=== PATIENT | female | born 1970 | race Caucasian/White ===

== ENCOUNTER → 2017-06-20 | Outpatient (CLI) | payer BC ==
--- NOTE | 2017-06-20 12:18 | WWHP ---
[facility] - HISTORY AND PHYSICAL DATE OF SERVICE: 06/20/2017 CHIEF COMPLAINT: The patient is here for her routine gynecologic exam and mammogram. HPI: This is a 46-year-old G4, P4, with an LMP of 06/14/2017. The patient is status post tubal ligation. The patient states her periods have gotten heavier and are lasting about 5 days. Typically, the second day of her menses is heavy with clots and she has to change her protection about every 1-1/2 hours. She is also experiencing infrequent pelvic pains over the past 1 year. She states when she goes from a sitting to a standing position, she occasionally will notice a sharp pain in the lower abdomen and pelvis. She states she has to get up slowly, but will typically go away within seconds. She states this has occurred about a dozen times over the last year. She states it is not on one particular side and it is very unpredictable when she will notice this. PAST MEDICAL HISTORY: Past medical history is unremarkable. MEDICATIONS: None. ALLERGIES: No known drug allergies. PAST SURGICAL HISTORY: Tonsillectomy in 1989, tubal ligation in 2002. 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 She has no history of STDs. SOCIAL HISTORY: She denies tobacco, alcohol, and drug use. 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 FAMILY HISTORY: Father had an [place] and also has type 2 diabetes. REVIEW OF SYSTEMS: Weight has been stable. She denies respiratory, cardiac or GI problems. PHYSICAL EXAM: Blood pressure 128/76, height 5 feet 4 inches, weight 164 pounds, BMI 28, temperature 97.9, pulse 64. This is a well-developed, well-nourished, white female, who is alert and oriented x3, in no acute distress. HEENT is within normal limits. NECK: Supple without mass or thyromegaly. CHEST AND LUNGS: Clear to auscultation. HEART: Regular rate and rhythm. Breasts are without mass or discharge. Axillary exam is negative for adenopathy. BACK: Negative for CVA tenderness. ABDOMEN: Soft, nontender, without palpable masses. PELVIC EXAM: Normal external genitalia. Cervix and vagina appear normal. There is no unusual discharge. There is no cervical motion tenderness. The uterus is mid position, nongravid size and nontender. There are no palpable adnexal masses or tenderness. Rectal exam is negative for mass or tenderness and is negative for occult blood. EXTREMITIES: Nontender. IMPRESSION: 1. A 46-year-old female who is status post tubal ligation with normal gynecologic exam. 2. Mild hypermenorrhea with regular menses with no significant physical findings at this time. 3. Intermittent infrequent pelvic pains, which seem to be associated with changes in her position with no significant physical findings at this time. PLAN: 1. Pap smear was performed. 2. Self breast examination was discussed. 3. Screening mammogram will be done today. 4. The patient will keep a menstrual calendar and we will have a trial with meclofenamate sodium 100 mg t.i.d. p.r.n. for heavy menstrual flow up to 6 days per cycle. If she is not noticing significant improvement within the first 3 months she was instructed to call and we will consider other options such as endometrial ablation. 5. Pelvic ultrasound will be scheduled. 6. She will return in 1 year. MMODL / IJN: [id number] /
--- NOTE | 2017-06-21 10:05 | MM ---
Reason for exam: screening (asymptomatic). Last mammogram was performed 3 years and 11 months ago. Physical Findings: A clinical breast exam by your physician is recommended on an annual basis and results should be correlated with mammographic findings. MG Screening Mammo w CAD Bilateral CC and MLO view(s) were taken. Prior study comparison: July 28, 2013, bilateral digital screening mammo w/CAD. The breast tissue is extremely dense which could obscure a lesion on mammography. There is no discrete abnormality. ASSESSMENT: Negative, BI-RAD 1 RECOMMENDATION: Routine screening mammogram of both breasts in 1 year.
== END | disposition home or self-care (01) ==
LOC: WWCWWP 10:07
PROVIDERS: ATTEND Obstetrics & Gynecology
DX: Z12.31 Encounter for screening mammogram for malignant neoplasm of breast (principal)
CPT/HCPCS: 77067

== ENCOUNTER → 2017-06-29 | Outpatient (CLI) | payer BC ==
--- NOTE | 2017-06-29 16:50 | US ---
EXAMINATION TYPE: US pelvic complete DATE OF EXAM: 06/29/2017 COMPARISON: NONE CLINICAL HISTORY: R10.2 PELVIC PAIN. bilateral pelvic pain when moving from sitting to standing TECHNIQUE: TA. Transabdominal sonographic images of the pelvis were acquired. Date of LMP: 06/17/2017 EXAM MEASUREMENTS: Uterus: 10.6 x 6.5 x 5.2 cm Endometrial Stripe: 1.6 cm Right Ovary: 2.5 x 1.5 x 2.5 cm Left Ovary: 3.1 x 3.8 x 1.5 cm 1. Uterus: Anteverted wnl 2. Endometrium: thickened 3. Right Ovary: wnl 4. Left Ovary: 1.7cm follicle seen 5. Bilateral Adnexa: wnl 6. Posterior cul-de-sac: wnl IMPRESSION: There is mild heterogeneous endometrial thickening of uncertain significance. No endometr ial mass seen. Simple 1.7 cm left ovarian cyst.
== END | disposition home or self-care (01) ==
LOC: RADUSWWP 16:09
PROVIDERS: ATTEND Obstetrics & Gynecology
DX: N83.202 Unspecified ovarian cyst, left side (principal); R93.8 Abnormal findings on diagnostic imaging of other specified body structures
CPT/HCPCS: 76856

== ENCOUNTER → 2019-11-24 | Outpatient (CLI) | payer BC ==
--- NOTE | 2019-11-24 14:42 | US ---
EXAMINATION TYPE: US pelvis complete transvag DATE OF EXAM: 11/24/2019 COMPARISON: Pelvic ultrasound 2018 CLINICAL HISTORY: N95.0 Menorrhagia. TECHNIQUE: . Transabdominal sonographic images of the pelvis were acquired. Transvaginal sonographi c images were medically necessary to better assess the following anatomy: Date of LMP: 11-11-2019 EXAM MEASUREMENTS: Uterus: 10.9 x 6.4 x 7.1cm Endometrial Stripe: 0.6-2.0cm Right Ovary: 1.8 x 1.3 x 1.1cm Left Ovary: 3.4 x 1.9 x 1.9cm 1. Uterus: diffusely heterogeneous, prominent vascularity 2. Endometrium: ill defined borders, difficult to ascertain where endometrium ends and myometrium be gins, possibly thickened with scattered fluid pockets largest at 1 cm 3. Right Ovary: wnl 4. Left Ovary: cystic structure measuring 2.1 x 1.8 x 1.9cm 5. Bilateral Adnexa: wnl 6. Posterior cul-de-sac: wnl Persistent heterogeneous anteverted uterus. Endometrial stripe poorly defined. Central area shows are as of heterogeneous hyperechoic presence and tiny cysts. Few small nabothian cysts in the cervix on t ransvaginal investigation. No free fluid in pelvis. Both ovaries seen without concerning adnexal mass. IMPRESSION: Possible underlying adenomyosis. Consider pelvic MRI to better evaluate and characteriz e.
== END | disposition home or self-care (01) ==
LOC: RADUSWWP 13:32
PROVIDERS: ATTEND Obstetrics & Gynecology
DX: N95.0 Postmenopausal bleeding (principal)
CPT/HCPCS: 76830; 76856

== ENCOUNTER → 2020-02-03 | Day surgery (SDC) | payer BC ==
[2020-02-02 08:26] VITALS: BMI 31.7
--- NOTE | 2020-02-02 14:07 | HP ---
HISTORY AND PHYSICAL DATE OF SURGERY: 02/03/2020 HISTORY OF PRESENT ILLNESS: The patient is a 49-year-old 4, para 4-0-0-4, who presented to the office for evaluation of menorrhagia. She complains of a fairly longstanding history of increasingly heavy bleeding which initially responded to meclofenamate sodium, but now has become no longer helpful. She has been bleeding through double protection and is often unable to leave her house for periods of time secondary to fear of breakthrough bleeding. She does have a tubal ligation in place. Her cycles remain otherwise regular. She is aware of other alternatives, but has requested treatment with diagnostic hysteroscopy and NovaSure endometrial ablation. PAST MEDICAL HISTORY: Significant for history of kidney stones. PAST SURGICAL HISTORY: Significant for tonsillectomy and tubal ligation with no apparent anesthetic concerns. OBSTETRICAL HISTORY: 4, para 4-0-0-4 with 4 term vaginal deliveries without complications. Method of contraception is tubal ligation. GYNECOLOGIC HISTORY: Unremarkable with no history of any infections to include STDs. FAMILY HISTORY: Noncontributory. SOCIAL HISTORY: The patient is and works in the [employer]. She is a nonsmoker and denies any significant alcohol or any other social concerns. CURRENT MEDICATIONS: Include only meclofenamate sodium as needed and a multivitamin daily. ALLERGIES: No known drug allergies. REVIEW OF SYSTEMS: Confined to history of present illness. PHYSICAL EXAMINATION: Vital signs are stable and the patient is afebrile. In general, this is a well- developed, well-nourished white female in no acute distress. Her heart has a regular rhythm and rate without murmur. Her lungs are clear to auscultation bilaterally in all velasco. Her abdomen is nondistended, has normoactive bowel sounds, soft, nontender, without any palpable masses, hepatosplenomegaly, or hernias. Her extremities are without any cyanosis, clubbing, or edema and are nontender to palpation bilaterally. Pelvic examination demonstrates normal external genitalia and the BUS with normal vaginal mucosa and cervix. There is no cervical motion tenderness. Uterus is 6 weeks in size, anteverted, mobile, nontender, and normal in shape. Endometrial biopsy was done in 1 pass and had benign findings. ASSESSMENT AND PLAN: Menorrhagia: We discussed multiple options for treatment and the patient requests desire to proceed with diagnostic hysteroscopy with NovaSure endometrial ablation. The risks and complications have been thoroughly discussed including risk for bleeding, bleeding requiring transfusion, infection, and injury to local structures to specifically include uterine perforation, Asherman syndrome, and possible hematometra. She has understood all these concerns and agreed to proceed. We are scheduled for the procedures as outlined above on the morning of Monday, February 03, 2020. MMODL / IJN: [id number] /
[~2020-02-03] MED LIST: Acetaminophen-Codeine 300-30mg TAB PO PRN; DEXAMETHASONE SOD PHOSPHATE 10 MG/ML 1 ML VIAL IV ONE; HYDROmorphone 0.5 MG/0.5 ML SYRINGE IVP PRN; IBUPROFEN 600 MG TAB PO PRN; KETOROLAC 15 MG/ML 1 ML VIAL IVP PRN; KETOROLAC 15 MG/ML 1 ML VIAL ONE; LACTATED RINGERS 1,000 ML IV SCH; LIDOCAINE 1% (10MG/ML) FOR IV START INTRADERMA PRN; LIDOCAINE 1% INJ 10MG/ML (20 ML MDV) ONE; METOCLOPRAMIDE 5 MG/ML 2 ML VIAL IVP PRN; MIDAZOLAM 2 MG/2 ML VIAL IV PRN; MIDAZOLAM 2 MG/2 ML VIAL ONE; ONDANSETRON 4 MG/2 ML VIAL IVP ONE; ONDANSETRON 4 MG/2 ML VIAL IVP PRN; PROPOFOL 10 MG/ML 20 ML VIAL IV ONE; Pre Op ABX Message 1 EACH MISC MISCELLANE ONE; SIMETHICONE 80 MG CHEWABLE PO PRN; diphenhydrAMINE 50 MG/ML 1 ML VIAL IVP PRN; fentaNYL (PF) 50 MCG/ML 2 ML AMP IV PRN; fentaNYL (PF) 50 MCG/ML 2 ML AMP ONE
[2020-02-03 06:48] VITALS: RESP 16
--- NOTE | 2020-02-03 08:12 | P.OP ---
Date of Procedure: 02/03/20 Preoperative Diagnosis: 1. Menorrhagia Postoperative Diagnosis: Same Procedure(s) Performed: #1. Diagnostic hysteroscopy #2. NovaSure endometrial ablation Anesthesia: other (Gen. by face mask) Surgeon: Joshua Velasquez Estimated Blood Loss (ml): 5 IV fluids (ml): 50 Urine output (ml): 5 Pathology: none sent Condition: stable Disposition: PACU Operative Findings: After pelvic examination demonstrated a 4-5 week acutely anteverted and anteflexed mobile normal shaped uterus with normal adnexa bilaterally. Intraoperatively, the uterus sounded to approximately 9 cm while the cervix was approximately 3-1/2-4 cm in length. Using the hysteroscope, the bilateral tubal ostia were seen and there was a moderate amount of shaggy endometrium throughout the cavity. The settings for the NovaSure tool were a length of 5.5 cm, a width of 4.8 cm for a total power of 148 W. After total run time of 59 seconds, the base unit read "procedure complete." The postprocedural result appeared to be excellent. The patient is a relatively poor candidate for vaginal hysterectomy with inadequate descensus, a da Yasmine approach would make more sense should hysterectomy become necessary. Description of Procedure: The patient was prepped and draped in usual fashion after general anesthesia was administered by the anesthesiologist. A weighted speculum was placed and bladder draining approximate 5 mL of clear margarita urine. The anterior lip of cervix was grasped with a single-tooth tenaculum and the cervix and uterus sounded to approximate 4 cm and approximately 9 cm respectively. Serial dilation was carried out to admit a diagnostic hysteroscope which was placed and the findings were as noted above. There was a moderate amount of shaggy endometrium throughout. After adequate hysteroscopy had been performed, scope was set aside and the NovaSure tool placed into the endometrial cavity, opened, and seated well. The settings are as noted above with a length of 5.5 cm, a width of 4.8 cm for a total power 148 W. The cavity check was attempted and passed without difficulty and the tool was enabled. The run was started and, after a total run time of 59 seconds, the base unit read "procedure complete." The 2 was closed, removed, and discarded. The diagnostic scope was replaced and the in vitro cavity and the result appeared to be excellent. All instrumentation was removed from the patient. There was one point of bleeding at the tenaculum site which was made hemostatic with pressure. No further pathology or problems were noted. Estimated blood loss for the entire case was less than 5 mL. There were no complications. All sponge, instrument, and needle counts were correct. The patient tolerated the procedure well and proceeded to the recovery room in stable condition.
[2020-02-03 08:16] VITALS: TEMP 97
[2020-02-03 09:35] VITALS: BP 128/72; PULSE 62
== END | disposition home or self-care (01) ==
LOC: OR 06:14
PROVIDERS: ATTEND Obstetrics & Gynecology
DX: N92.0 Excessive and frequent menstruation with regular cycle (principal); Z98.51 Tubal ligation status; Z98.890 Other specified postprocedural states; Z87.442 Personal history of urinary calculi
CPT/HCPCS: 81025; 58563; J2250; J1100; J2405; J2001; J3010; J1885; J2704; J1170

== ENCOUNTER 2020-10-12 10:49 | Day surgery (SDC) | payer BC ==
[2020-10-07 11:42] VITALS: BMI 31.4
[~2020-10-12 10:49] MED LIST changes: -Acetaminophen-Codeine 300-30mg TAB PO PRN; -DEXAMETHASONE SOD PHOSPHATE 10 MG/ML 1 ML VIAL IV ONE; -HYDROmorphone 0.5 MG/0.5 ML SYRINGE IVP PRN; -IBUPROFEN 600 MG TAB PO PRN; -KETOROLAC 15 MG/ML 1 ML VIAL IVP PRN; -KETOROLAC 15 MG/ML 1 ML VIAL ONE; -LIDOCAINE 1% (10MG/ML) FOR IV START INTRADERMA PRN; -LIDOCAINE 1% INJ 10MG/ML (20 ML MDV) ONE; -METOCLOPRAMIDE 5 MG/ML 2 ML VIAL IVP PRN; -MIDAZOLAM 2 MG/2 ML VIAL IV PRN; -MIDAZOLAM 2 MG/2 ML VIAL ONE; -ONDANSETRON 4 MG/2 ML VIAL IVP ONE; -ONDANSETRON 4 MG/2 ML VIAL IVP PRN; -PROPOFOL 10 MG/ML 20 ML VIAL IV ONE; -Pre Op ABX Message 1 EACH MISC MISCELLANE ONE; -SIMETHICONE 80 MG CHEWABLE PO PRN; -diphenhydrAMINE 50 MG/ML 1 ML VIAL IVP PRN; -fentaNYL (PF) 50 MCG/ML 2 ML AMP IV PRN; -fentaNYL (PF) 50 MCG/ML 2 ML AMP ONE
[2020-10-12 11:04] VITALS: TEMP 97.7
[2020-10-12] MEDS ORDERED: LACTATED RINGERS 1,000 ML IV ONE ×3 (11:04→12:06)
[2020-10-12] MEDS ORDERED: LIDOCAINE 1% INJ 10MG/ML (20 ML MDV) ONE (11:30)
[2020-10-12] MEDS ORDERED: MIDAZOLAM 2 MG/2 ML VIAL ONE (11:30)
[2020-10-12] MEDS ORDERED: PROPOFOL 10 MG/ML 20 ML VIAL IV ONE (11:30)
[2020-10-12] MEDS ORDERED: fentaNYL (PF) 50 MCG/ML 2 ML AMP ONE (11:30)
[2020-10-12 12:08] VITALS: RESP 16
--- NOTE | 2020-10-12 12:12 | P.PCN ---
Date of Procedure: 10/12/20 Description of Procedure: Brief history: Patient is a pleasant 49-year-old female presenting for evaluation of esophageal dysphagia and diarrhea and altered bowel function with esophagogastroduodenoscopy and colonoscopy. No prior endoscopic evaluation. She reports intermittent esophageal dysphagia occurring over the past 2 years predominantly to solid foods such as pills and occurring intermittently. She also reports altered bowel function and episodes of constipation. Procedure performed: Esophagogastroduodenoscopy with biopsy Colonoscopy with biopsy and polypectomy Estimated blood loss: Minimal. Preoperative diagnosis: Dysphagia, esophageal dysphagia, diarrhea, altered bowel function Anesthesia: MAC Procedure: After informed consent was obtained from the patient was brought into the endoscopy unit and IV sedation was administered by anesthesia under continuous monitoring. Initially upper endoscopy was done. The Olympus GF 190 video endoscope was inserted into the mouth and esophagus intubated without any difficulty and was gradually advanced into the stomach and duodenum and carefully examined. The bulb and second part of the duodenum appeared normal, With biopsies taken. The scope was then withdrawn into the stomach adequately insufflated with air and upon careful examination the antrum and body, cardia and fundus appeared normal, Except for some mild punctate erythema in the antrum and body suggestive of mild gastritis with biopsies of antrum and body taken. The scope was then withdrawn into the esophagus. The GE junction was located at 37 cm to the incisors. It appeared regular with no erythema erosions or ulcerations. Rest of the esophagus appeared normal, With biopsies taken of the lower esophagus and midesophagus. However there did appear to be some tightness in the proximal esophagus at the approximate level of the upper esophageal sphincter unclear if this is secondary to cricopharyngeal dysphagia or possibly external compression. Patient tolerated the procedure well. At this time the patient continued to remain sedation. Initial digital rectal examination was normal. Olympus CF 190 video colonoscope was then inserted into the rectum and gradually advanced to the cecum without any difficulty. Careful examination was performed as the scope was gradually being withdrawn. The prep was excellent. The cecum, ascending colon, transverse colon, descending colon, sigmoid colon and rectum appeared normal, With biopsies taken of the right and left colon. The terminal ileum appeared normal. A diminutive 2 mm rectal polyp was removed with cold forcep polypectomy. Retroflexion was performed in the rectum and no lesions were noted. Patient tolerated the procedure well. Impression: 1. Normal-appearing esophagus with no mass, stricture or ulceration noted, however there was some resistance in the proximal esophagus which may be related to cricopharyngeal dysphagia or possibly external compression. Mild gastritis. Biopsies of the duodenum, antrum and body, lower esophagus and midesophagus. 2. Diminutive rectal polyp removed with cold forcep polypectomy. Otherwise normal-appearing colon from rectum to cecum and normal-appearing terminal ileum with random biopsies taken of the right and left colon. Recommendations: Findings of this examination were discussed with the patient as well as her family. Okay to resume diet. Okay to resume medications. Await pathology from biopsies. Extensive discussion with the patient regarding symptoms. As a part cancer her constipation would recommend supplementation with daily MiraLAX. Can consider computed tomography scan of the head and neck for esophageal dysphagia for manometry in the future if symptoms continue. Recommend repeat colonoscopy in 7 years for colon polyp pending pathology from polypectomy.
[2020-10-12 12:22] VITALS: BP 119/61; PULSE 72
[2020-10-12] MEDS ORDERED: IV FLUID CONTINUATION 700 ML IV ONE (12:51)
== END 2020-10-12 13:03 | disposition home or self-care (01) ==
LOC: ORWHC2ENDO 10:49
PROVIDERS: ATTEND Internal Medicine
DX: K29.50 Unspecified chronic gastritis without bleeding (principal); K20.0 Eosinophilic esophagitis; K62.1 Rectal polyp; Z79.1 Long term (current) use of non-steroidal anti-inflammatories (NSAID); Z98.51 Tubal ligation status; Z98.890 Other specified postprocedural states; Z90.89 Acquired absence of other organs
CPT/HCPCS: 81025; 88305; 45380; 43239; J2250; J2001; J3010; J2704

== ENCOUNTER → 2024-01-03 | Outpatient (CLI) | payer BC ==
--- NOTE | 2024-01-05 08:06 | MR ---
EXAMINATION TYPE: MR lumbar spine wo con DATE OF EXAM: 01/03/2024 5:06 PM CLINICAL INDICATION: Female, 53 years old with history of M54.50 LOW BACK PAIN, M48. 062; PHH, low ba ck pain COMPARISON: None TECHNIQUE: Multi planar, multi sequence imaging was performed utilizing: T1-weighted, T2-weighted, a nd turbo inversion recovery imaging of the lumbar spine. IV Contrast: cc . (None if empty) FINDINGS: Alignment: The lumbar vertebral bodies have preserved heights and alignment. Cord: The conus medullaris and the distal spinal cord appear unremarkable with regards to their signa l intensity and morphology. Bones/Discs: Mild degeneration changes throughout the spine with osteophyte formation and facet joint arthropathy. Intervertebral disc signal is maintained. No abnormal inversion recovery signal to sugg est bony edema. T12-L1: No evidence of significant spinal canal stenosis or neural foraminal stenosis. L1-L2: Central disc protrusion with out significant spinal canal stenosis. The neural foramen are pat ent. L2-L3: No evidence of significant spinal canal stenosis or neural foraminal stenosis. L3-L4: No evidence of significant spinal canal stenosis or neural foraminal stenosis. L4-L5: No evidence of significant spinal canal stenosis or neural foraminal stenosis. L5-S1: The disc has a rounded posterior morphology without significant spinal canal stenosis. Facet j oint arthropathy with mild bilateral neural foraminal stenosis. No significant spinal canal or neural foraminal stenosis in the remainder of the visualized levels. Other findings: None. IMPRESSION: 1. L1-L2 Central disc protrusion without significant spinal canal stenosis. No evidence for signific ant neural foraminal stenosis at this level. 2. Mild disc degeneration with associated osteoarthritic changes.
== END | disposition home or self-care (01) ==
LOC: RADMRIMAIN 16:20
PROVIDERS: ATTEND Orthopaedic Surgery Orthopaedic Surgery of the Spine
DX: M51.36 Other intervertebral disc degeneration, lumbar region (principal); M51.26 Other intervertebral disc displacement, lumbar region; M48.062 Spinal stenosis, lumbar region with neurogenic claudication
CPT/HCPCS: 72148

== ENCOUNTER 2024-08-31 03:30 | Emergency (ER) | payer BC ==
[2024-08-31] MEDS: KETOROLAC 15 MG/ML 1 ML VIAL IVP STA ×2 (04:16→09:01)
[2024-08-31] MEDS: HYDROmorphone 1 MG/ML 1 ML SYRINGE IVP STA (04:17)
[2024-08-31 04:37] LABS: Basophils # (A) 0.07 10*3/uL (0.00-0.10); Basophils % (A) 1.1 %; Eosinophils # (A) 0.04 10*3/uL (0.04-0.35); Eosinophils % (A) 0.6 %; HCT 41.2 % (37.2-46.3); HGB 14.4 g/dL (12.0-15.0); Lymphocytes # (A) 1.62 10*3/uL (0.90-5.00); Lymphocytes % (A) 24.5 %; MCH 32.3 pg (27.0-32.0); MCV 92.4 fL (80.0-97.0); Mean Platelet Volume 12.4 fL (9.5-12.2); Monocytes # (A) 0.41 10*3/uL (0.20-1.00); Monocytes % (A) 6.2 %; Neutrophils # (A) 4.46 10*3/uL (1.80-7.70); Neutrophils % (A) 67.3 %; Platelet Count 189 10*3/uL (140-440); RBC 4.46 10*6/uL (4.10-5.20); RDW 13.4 % (11.5-14.5); WBC 6.62 10*3/uL (4.50-10.00)
[2024-08-31 04:56] LABS: ALT 18 U/L (4-34); AST 25 U/L (14-36); African American GFR (CKD) >90 (>60 ml/min/1.73 sqM); Albumin 4.3 g/dL (3.5-5.0); Alkaline Phosphatase 66 U/L (38-126); Amylase 62 U/L (30-110); Anion Gap 14 mmol/L; Blood Urea Nitrogen 19 mg/dL (7-17); Carbon Dioxide 24 mmol/L (22-30); Chloride 100 mmol/L (98-107); Glucose 133 mg/dL (74-99); Lipase 128 U/L (23-300); Non-African American GFR(CKD) >90 (>60 ml/min/1.73 sqM); Potassium 3.8 mmol/L (3.5-5.1); Sodium 138 mmol/L (137-145); Total Bilirubin 0.6 mg/dL (0.2-1.3); Total Protein 6.6 g/dL (6.3-8.2)
[2024-08-31] MEDS: HYDROmorphone 0.5 MG/0.5 ML SYRINGE IVP STA ×2 (05:57→07:58)
[2024-08-31 06:06] VITALS: RESP 18
--- NOTE | 2024-08-31 07:18 | CT ---
EXAMINATION TYPE: CT abdomen pelvis wo con DATE OF EXAM: 08/31/2024 4:44 AM COMPARISON: 01/03/2024. CLINICAL INDICATION: Female, 53 years old with history of abdominal pain, R flank; TECHNIQUE: Axial CT abdomen pelvis wo con;Sagittal and coronal reformats were created on a separate workstation. Contrast used: mL of , (none if empty) Oral contrast used: (none if empty) CT DLP: 669. mGycm, Automated exposure control for dose reduction was used. FINDINGS: LOWER CHEST: Unremarkable ABDOMEN LIVER: Indeterminate hypodense lesion in the right hepatic lobe near the dome measuring up to 29 mm. This measures 40 Hounsfield units. GALLBLADDER AND BILE DUCTS: Unremarkable. PANCREAS: Unremarkable. SPLEEN: Unremarkable. ADRENAL GLANDS: Unremarkable. KIDNEYS AND URETERS: Mild/moderate right hydronephrosis secondary obstructing 4 mm calculus in the ri ght ureter near the ureteral pelvic brim. PELVIS BLADDER: No evidence for wall thickening or mass given limitations of exam. REPRODUCTIVE: Unremarkable. ABDOMEN & PELVIS STOMACH AND BOWEL: No evidence of bowel obstruction. The appendix is normal. PERITONEUM/RETROPERITONEUM: No evidence of pneumoperitoneum or free fluid. VASCULATURE: No evidence of aortic aneurysm. MUSCULOSKELETAL: No acute osseous abnormalities. Moderate disc degeneration changes are present throu ghout the thoracolumbar spine. Disc bulge at L4-L5 and L1-L2 noted. LYMPH NODES: No gross evidence for lymphadenopathy. SOFT TISSUE/ABDOMINAL WALL: Fat-containing umbilical hernia. IMPRESSION: 1. Mild/moderate right hydronephrosis secondary obstructing 4 mm calculus in the right ureter near t he ureteral pelvic brim. 2. Indeterminate hypodense lesion in the dome of the right hepatic lobe measuring up to 29 mm . MRI liver mass protocol recommended. [facility], , 08/31/2024 7:16 AM
--- NOTE | 2024-08-31 07:21 | ED ---
Abdominal Pain HPI - General Chief Complaint: Abdominal Pain Stated Complaint: Back pain, abd pain Time Seen by Provider: 08/31/24 03:48 Source: patient Mode of arrival: wheelchair Limitations: no limitations - History of Present Illness Initial Comments: This patient is a 53-year-old woman with who presents with acute onset of severe flank pain also having nausea. No fever or chills. Has not noted change in urination. MD Complaint: flank pain -: hour(s) Location: R flank Radiation: none Severity: severe Quality: aching Consistency: colicky Improves With: nothing Worsens With: nothing Associated Symptoms: nausea, vomiting - Related Data Previous Rx's Medication Instructions Recorded HYDROcodone/APAP 5-325MG [[place] 1 tab PO Q4HR PRN 3 Days #18 tab 08/31/24 5-325] Ondansetron Odt [Zofran ODT] 4 mg PO Q8HR PRN #10 tab 08/31/24 Tamsulosin [Flomax] 0.4 mg PO DAILY #14 cap 08/31/24 Ketorolac [Toradol] 10 mg PO Q6HR PRN #10 tab 09/04/24 Ketorolac [Toradol] 10 mg PO Q6HR PRN #10 tab 09/04/24 Tolterodine ER [Detrol LA] 4 mg PO DAILY #14 cap 09/04/24 Tolterodine ER [Detrol LA] 4 mg PO DAILY #14 cap 09/04/24 Allergies Allergy/AdvReac Type Severity Reaction Status Date / Time No Known Allergies Allergy Verified 09/04/24 07:41 Review of Systems ROS Statement: Those systems with pertinent positive or pertinent negative responses have been documented in the HPI. ROS Other: All systems not noted in ROS Statement are negative. Constitutional: Denies: fever, chills Respiratory: Denies: cough, dyspnea Cardiovascular: Denies: chest pain, palpitations, edema Gastrointestinal: Reports: abdominal pain, nausea, vomiting. Denies: diarrhea, constipation, hematemesis, melena, hematochezia Genitourinary: Denies: dysuria, hematuria Musculoskeletal: Denies: back pain Skin: Denies: rash Neurological: Denies: headache, weakness Past Medical History Past Medical History: No Reported History Additional Past Medical History / Comment(s): She has had issues with menorrh agia. kidney stones History of Any Multi-Drug Resistant Organisms: None Reported Past Surgical History: Hysterectomy, Tonsillectomy, Tubal Ligation, Uterine Ablation Past Anesthesia/Blood Transfusion Reactions: Family History of Problems w/ Anesthesia Additional Past Anesthesia/Blood Transfusion Reaction / Comment(s): mother hx of ponv Past Psychological History: No Psychological Hx Reported Smoking Status: Never smoker Past Alcohol Use History: None Reported Past Drug Use History: None Reported - Past Family History Father Family Medical History: Diabetes Mellitus, Myocardial Infarction ([place]) General Exam Limitations: no limitations General appearance: alert, in no apparent distress Eye exam: Present: normal appearance. Absent: scleral icterus, conjunctival injection Neck exam: Present: normal inspection Respiratory exam: Present: normal lung sounds bilaterally. Absent: respiratory distress, wheezes, rales, rhonchi, stridor, accessory muscle use Cardiovascular Exam: Present: regular rate, normal rhythm, normal heart sounds. Absent: systolic murmur, diastolic murmur, rubs, gallop GI/Abdominal exam: Present: soft. Absent: distended, tenderness, guarding, rebound, rigid, mass Extremities exam: Present: normal inspection, normal capillary refill. Absent: pedal edema, calf tenderness Back exam: Present: normal inspection, CVA tenderness (R). Absent: CVA tenderness (L) Neurological exam: Present: alert Skin exam: Present: warm, dry, intact, normal color. Absent: rash Course Vital Signs 08/31/24 08/31/24 08/31/24 03:31 06:05 06:56 Temperature 97.2 F L Pulse Rate 64 61 61 Respiratory 24 18 18 Rate Blood Pressure 116/79 143/71 134/55 O2 Sat by Pulse 97 96 94 L Oximetry 08/31/24 08/31/24 07:57 09:04 Temperature 97.8 F Pulse Rate 61 78 Respiratory 18 18 Rate Blood Pressure 127/75 145/76 O2 Sat by Pulse 98 98 Oximetry Medical Decision Making - Medical Decision Making The patient had CT scan that I interpreted as showing presence of kidney stone. Was pt. sent in by a medical professional or institution (, PA, [employer] SPECIALIST, urgent care, hospital, or alf...) When possible be specific @ -[No] Did you speak to anyone other than the patient for history (EMS, parent, family, police, friend...)? What history was obtained from this source @ -[No] Did you review nursing and triage notes (agree or disagree)? Why? @ -[I reviewed and agree with nursing and triage notes] Were old charts reviewed (outside hosp., previous admission, EMS record, old EKG, old radiological studies, urgent care reports/EKG's, alf records)? Report findings @ -[No old charts were reviewed] Differential Diagnosis (chest pain, altered mental status, abdominal pain women, abdominal pain men, vaginal bleeding, weakness, fever, dyspnea, syncope, headache, dizziness, GI bleed, back pain, seizure, CVA, palpatations, mental health, musculoskeletal)? @ -[Differential Abdominal Pain Women: Appendicitis, Cholecystitis, diverticulosis, ischemic bowel, pancreatitis, hepatitis, UTI, gastroenteritis, AAA, incarcerated hernia, bowel obstruction, constipation, inflammatory bowel, hepatitis, peptic ulcer disease, splenic infarction, perforated viscus, vulvitis, ovarian torsion, PID, kidney stone, placenta abruption, this is not meant to be an all-inclusive list EKG interpreted by me (3pts min.). @ -[As above] X-rays interpreted by me (1pt min.). @ -[None done] CT interpreted by me (1pt min.). @ -[I interpreted as above U/S interpreted by me (1pt. min.). @ -[None done] What testing was considered but not performed or refused? (CT, X-rays, U/S, labs)? Why? @ -[None] What meds were considered but not given or refused? Why? @ -[None] Did you discuss the management of the patient with other professionals (professionals i.e. , PA, [employer] SPECIALIST, lab, RT, psych nurse, clinical social work aide, criminal lawyer, teacher, environmental health officer, egg caser)? Give summary @ -[No] Was smoking cessation discussed for >3mins.? @ -[No] Was critical care preformed (if so, how long)? @ -[No] Were there social determinants of health that impacted care today? How? (Homelessness, low income, unemployed, alcoholism, drug addiction, transportation, low edu. Level, literacy, decrease access to med. care, fpc, rehab)? @ -[No] Was there de-escalation of care discussed even if they declined (Discuss DNR or withdrawal of care, Hospice)? DNR status @ -[No] What co-morbidities impacted this encounter? (DM, HTN, Smoking, COPD, CAD, Cancer, CVA, ARF, Chemo, Hep., AIDS, mental health diagnosis, sleep apnea, morbid obesity)? @ -[None] Was patient admitted / discharged? Hospital course, mention meds given and route, prescriptions, significant lab abnormalities, going to OR and other pertinent info. @ -[Patient is 53-year-old woman here with history and physical consistent with kidney stone. The CT scan does reveal presence of stone. The patient feeling better with treatment here and stable for outpatient course. Discussed appropriate further care and follow-up as well as return parameters Undiagnosed new problem with uncertain prognosis? @ -[No] Drug Therapy requiring intensive monitoring for toxicity (Heparin, Nitro, Insulin, Cardizem)? @ -[No] Were any procedures done? @ -[No] Diagnosis/symptom? @ -[Acute kidney stone Acute, or Chronic, or Acute on Chronic? @ -[Acute Uncomplicated (without systemic symptoms) or Complicated (systemic symptoms)? @ -[Uncomplicated Side effects of treatment? @ -[No] Exacerbation, Progression, or Severe Exacerbation? @ -[No] Poses a threat to life or bodily function? How? (Chest pain, [place], [place], pneumonia, PE, COPD, DKA, ARF, appy, cholecystitis, CVA, Diverticulitis, Homicidal, Suicidal, threat to staff... and all critical care pts) @ -[No] All treatments are based on ideal body weight as in ED triage - Lab Data Result diagrams: 08/31/24 04:20 08/31/24 04:20 Lab Results 08/31/24 08/31/24 Range/Units 04:20 04:20 WBC 6.62 (4.50-10.00) 10*3/uL RBC 4.46 (4.10-5.20) 10*6/uL Hgb 14.4 (12.0-15.0) g/dL Hct 41.2 (37.2-46.3) % MCV 92.4 (80.0-97.0) fL MCH 32.3 H (27.0-32.0) pg MCHC 35.0 (32.0-37.0) g/dL Plt Count 189 (140-440) 10*3/uL MPV 12.4 H (9.5-12.2) fL Immature Gran % (Auto) 0.3 % Neutrophils % 67.3 % Lymphocytes % 24.5 % Monocytes % 6.2 % Eosinophils % 0.6 % Basophils % 1.1 % Immature Gran # 0.02 (0.00-0.04) 10*3/uL Neutrophils # 4.46 (1.80-7.70) 10*3/uL Lymphocytes # 1.62 (0.90-5.00) 10*3/uL Monocytes # 0.41 (0.20-1.00) 10*3/uL Eosinophils # 0.04 (0.04-0.35) 10*3/uL Basophils # 0.07 (0.00-0.10) 10*3/uL Sodium 138 (137-145) mmol/L Potassium 3.8 (3.5-5.1) mmol/L Chloride 100 (98-107) mmol/L Carbon Dioxide 24 (22-30) mmol/L Anion Gap 14 mmol/L BUN 19 H (7-17) mg/dL Creatinine 0.74 (0.52-1.04) mg/dL Est GFR (CKD-EPI)AfAm >90 (>60 ml/min/1.73 sqM) Est GFR (CKD-EPI)NonAf >90 (>60 ml/min/1.73 sqM) Glucose 133 H (74-99) mg/dL Calcium 10.0 (8.4-10.2) mg/dL Total Bilirubin 0.6 (0.2-1.3) mg/dL AST 25 (14-36) U/L ALT 18 (4-34) U/L Alkaline Phosphatase 66 (38-126) U/L Total Protein 6.6 (6.3-8.2) g/dL Albumin 4.3 (3.5-5.0) g/dL Amylase 62 (30-110) U/L Lipase 128 (23-300) U/L Disposition Clinical Impression: Kidney stone on right side Disposition: HOME SELF-CARE Condition: Good Instructions (If sedation given, give patient instructions): Kidney Stones (ED) Additional Instructions: As we discussed, there is a small mass on your liver that should be further evaluated with an MRI, follow with your doctor to arrange this. Prescriptions: Tamsulosin [Flomax] 0.4 mg PO DAILY #14 cap HYDROcodone/APAP 5-325MG [[place] 5-325] 1 tab PO Q4HR PRN 3 Days #18 tab PRN Reason: Pain Ondansetron Odt [Zofran ODT] 4 mg PO Q8HR PRN #10 tab PRN Reason: Nausea Is patient prescribed a controlled substance at d/c from ED?: Yes Referrals: Thang Wright DO [Primary Care Provider] - 1-2 days
[2024-08-31 09:07] VITALS: BP 145/76; PULSE 78; TEMP 97.8
== END 2024-08-31 09:11 | disposition home or self-care (01) ==
LOC: EC 03:30
DX: N13.2 Hydronephrosis with renal and ureteral calculous obstruction (principal)
CPT/HCPCS: 36415; 80053; 82150; 83690; 85025; 74176; 99284; 96374; 96375; 96376; J1171 ×2; J1885

== ENCOUNTER 2024-09-04 01:43 | Observation (INO) | payer BC ==
--- NOTE | 2024-09-04 02:06 | ED ---
General Adult HPI - General Chief complaint: Abdominal Pain Stated complaint: ABD PAIN Time Seen by Provider: 09/04/24 01:50 Source: patient, EMS, RN notes reviewed, old records reviewed Mode of arrival: ambulatory Limitations: no limitations - History of Present Illness Initial comments: 53-year-old female presenting with right flank pain, known obstructing kidney stone diagnosed [address]. Patient had been doing well and then had sudden onset of worsening pain in the right flank which is where her pain was previously. Patient was given Toradol and morphine by paramedics during transport and pain is completely gone at the time my evaluation. No fever. No vomiting. - Related Data Home Medications Medication Instructions Recorded Confirmed Meclofenamate Sodium 1 tablet PO TID PRN 11/18/19 10/07/20 Previous Rx's Medication Instructions Recorded HYDROcodone/APAP 5-325MG [[place] 1 tab PO Q4HR PRN 3 Days #18 tab 08/31/24 5-325] Ondansetron Odt [Zofran ODT] 4 mg PO Q8HR PRN #10 tab 08/31/24 Tamsulosin [Flomax] 0.4 mg PO DAILY #14 cap 08/31/24 Allergies Allergy/AdvReac Type Severity Reaction Status Date / Time No Known Allergies Allergy Verified 08/31/24 03:31 Review of Systems ROS Statement: Those systems with pertinent positive or pertinent negative responses have been documented in the HPI. ROS Other: All systems not noted in ROS Statement are negative. Past Medical History Past Medical History: No Reported History Additional Past Medical History / Comment(s): She has had issues with menorrhagia. kidney stones History of Any Multi-Drug Resistant Organisms: None Reported Past Surgical History: Hysterectomy, Tonsillectomy, Tubal Ligation, Uterine Ablation Past Anesthesia/Blood Transfusion Reactions: Family History of Problems w/ Anesthesia Additional Past Anesthesia/Blood Transfusion Reaction / Comment(s): mother hx of ponv Past Psychological History: No Psychological Hx Reported Smoking Status: Never smoker Past Alcohol Use History: None Reported Past Drug Use History: None Reported - Past Family History Father Family Medical History: Diabetes Mellitus, Myocardial Infarction ([place]) General Exam Limitations: no limitations General appearance: alert, in no apparent distress Head exam: Present: atraumatic, normocephalic Eye exam: Present: normal appearance, PERRL ENT exam: Present: normal exam Neck exam: Present: normal inspection. Absent: tenderness, meningismus Respiratory exam: Present: normal lung sounds bilaterally. Absent: respiratory distress, wheezes Cardiovascular Exam: Present: regular rate, normal rhythm GI/Abdominal exam: Present: soft. Absent: distended, tenderness, guarding Neurological exam: Present: alert, oriented X3, CN II-XII intact. Absent: motor sensory deficit Psychiatric exam: Present: normal affect, normal mood Skin exam: Present: warm, dry, intact. Absent: cyanosis, diaphoretic Course Vital Signs 09/04/24 09/04/24 09/04/24 01:44 03:01 03:52 Temperature 97.8 F Pulse Rate 77 62 80 Respiratory 16 16 16 Rate Blood Pressure 141/77 111/61 129/66 O2 Sat by Pulse 97 97 98 Oximetry 09/04/24 09/04/24 04:09 06:13 Temperature 98.1 F Pulse Rate 66 64 Respiratory 16 16 Rate Blood Pressure 140/75 117/65 O2 Sat by Pulse 98 98 Oximetry Medical Decision Making - Medical Decision Making Was pt. sent in by a medical professional or institution (Dr. PA, VALANCE CUTTER, urgent care, hospital, or long term...) When possible be specific @ -No Did you speak to anyone other than the patient for history (EMS, parent, family, police, friend...)? What history was obtained from this source @ -No Did you review nursing and triage notes (agree or disagree)? Why? @ -I reviewed and agree with nursing and triage notes Were old charts reviewed (outside hosp., previous admission, EMS record, old EKG, old radiological studies, urgent care reports/EKG's, long term records)? Report findings @ -No old charts were reviewed Differential Abdominal Pain Women: Appendicitis, Cholecystitis, diverticulosis, ischemic bowel, pancreatitis, hepatitis, UTI, gastroenteritis, AAA, incarcerated hernia, bowel obstruction, constipation, inflammatory bowel, hepatitis, peptic ulcer disease, splenic infarction, perforated viscus, vulvitis, ovarian torsion, PID, kidney stone, placenta abruption, this is not meant to be an all-inclusive list EKG interpreted by me (3pts min.). @ -As above X-rays interpreted by me (1pt min.). @X-ray negative for obstruction CT interpreted by me (1pt min.). @CT on pelvis without contrast shows persistent obstructing renal calculus in the right ureter U/S interpreted by me (1pt. min.). @ -None done What testing was considered but not performed or refused? (CT, X-rays, U/S, labs)? Why? @ -None What meds were considered but not given or refused? Why? @ -None Did you discuss the management of the patient with other professionals (professionals i.e. DrDominga, PA, VALANCE CUTTER, lab, RT, psych nurse, social insurance analyst, political scientist, teacher, chief communications officer, case supervisor)? Give summary @ -Case discussed with Dr. Gutierrez, will admit Was smoking cessation discussed for >3mins.? @ -No Was critical care preformed (if so, how long)? @ -No Were there social determinants of health that impacted care today? How? (Ho melessness, low income, unemployed, alcoholism, drug addiction, transportation, low edu. Level, literacy, decrease access to med. care, longterm, rehab)? @ -No Was there de-escalation of care discussed even if they declined (Discuss DNR or withdrawal of care, Hospice)? DNR status @ -No What co-morbidities impacted this encounter? (DM, HTN, Smoking, COPD, CAD, Cancer, CVA, ARF, Chemo, Hep., AIDS, mental health diagnosis, sleep apnea, morbid obesity)? @ -None Was patient admitted / discharged? Hospital course, mention meds given and route, prescriptions, significant lab abnormalities, going to OR and other pertinent info. @ -53-year-old female with known obstructing right renal calculus presenting with worsening pain patient given morphine by paramedics as well as Toradol. Patient has normal CBC, normal CMP with exception of a mild hypoglycemia, urinalysis is contaminated showing 4+ ketones and some microscopic hematuria. Patient continues to have significant pain in the emergency department requiring multiple doses of pain medication. She will be admitted for pain control and evaluation by urology. Undiagnosed new problem with uncertain prognosis? @ -No Drug Therapy requiring intensive monitoring for toxicity (Heparin, Nitro, Insulin, Cardizem)? @ -No Were any procedures done? @ -No Diagnosis/symptom? @ -[Obstructing renal calculus, hydronephrosis Acute, or Chronic, or Acute on Chronic? @ -Acute Uncomplicated (without systemic symptoms) or Complicated (systemic symptoms)? @ -Default Side effects of treatment? @ -No Exacerbation, Progression, or Severe Exacerbation? @ -No Poses a threat to life or bodily function? How? (Chest pain, [place], [place], pneumonia, PE, COPD, DKA, ARF, appy, cholecystitis, CVA, Diverticulitis, Homicidal, Suicidal, threat to staff... and all critical care pts) @ -[Risk of worsening kidney function, sepsis - Lab Data Result diagrams: 09/04/24 02:15 09/04/24 02:15 Lab Results 09/04/24 09/04/24 09/04/24 Range/Units 02:15 02:15 03:47 WBC 9.80 (4.50-10.00) 10*3/uL RBC 4.25 (4.10-5.20) 10*6/uL Hgb 13.7 (12.0-15.0) g/dL Hct 39.0 (37.2-46.3) % MCV 91.8 (80.0-97.0) fL MCH 32.2 H (27.0-32.0) pg MCHC 35.1 (32.0-37.0) g/dL Plt Count 197 (140-440) 10*3/uL MPV 12.0 (9.5-12.2) fL Immature Gran % (Auto) 0.3 % Neutrophils % 80.5 % Lymphocytes % 9.8 % Monocytes % 8.4 % Eosinophils % 0.3 % Basophils % 0.7 % Immature Gran # 0.03 (0.00-0.04) 10*3/uL Neutrophils # 7.89 H (1.80-7.70) 10*3/uL Lymphocytes # 0.96 (0.90-5.00) 10*3/uL Monocytes # 0.82 (0.20-1.00) 10*3/uL Eosinophils # 0.03 L (0.04-0.35) 10*3/uL Basophils # 0.07 (0.00-0.10) 10*3/uL Sodium 137 (137-145) mmol/L Potassium 3.7 (3.5-5.1) mmol/L Chloride 98 (98-107) mmol/L Carbon Dioxide 23 (22-30) mmol/L Anion Gap 16 mmol/L BUN 12 (7-17) mg/dL Creatinine 0.66 (0.52-1.04) mg/dL Est GFR (CKD-EPI)AfAm >90 (>60 ml/min/1.73 sqM) Est GFR (CKD-EPI)NonAf >90 (>60 ml/min/1.73 sqM) Glucose 69 L (74-99) mg/dL Calcium 9.8 (8.4-10.2) mg/dL Total Bilirubin 0.7 (0.2-1.3) mg/dL AST 25 (14-36) U/L ALT 16 (4-34) U/L Alkaline Phosphatase 60 (38-126) U/L Total Protein 6.5 (6.3-8.2) g/dL Albumin 4.1 (3.5-5.0) g/dL Urine Color Light Yellow Urine Appearance Cloudy H (Clear) Urine pH 5.5 (5.0-8.0) Ur Specific [place] 1.016 (1.001-1.035) Urine Protein Negative (Negative) Urine Glucose (UA) Negative (Negative) Urine Ketones 4+ H (Negative) Urine Blood Moderate H (Negative) Urine Nitrite Negative (Negative) Urine Bilirubin Negative (Negative) Urine Urobilinogen <2.0 (<2.0) mg/dL Ur Leukocyte Esterase Large H (Negative) Urine RBC 50 H (0-5) /hpf Urine WBC 15 H (0-5) /hpf Ur Squamous Epith Cells 6 H (0-4) /hpf Urine Bacteria Rare H (None) /hpf Hyaline Casts 7 H (0-2) /lpf Urine Mucus Rare H (None) /hpf Urine Yeast (Budding) Rare H (None) /hpf Disposition Clinical Impression: Kidney stone on right side, Calculus of kidney Disposition: ADMITTED IP TO THIS HOSP Condition: Stable Is patient prescribed a controlled substance at d/c from ED?: No Referrals: Thang Wright DO [Primary Care Provider] - 1-2 days Time of Disposition: 06:25
[2024-09-04 02:31] LABS: HGB 13.7 g/dL (12.0-15.0); Lymphocytes % (A) 9.8 %; MCH 32.2 pg (27.0-32.0); MCHC 35.1 g/dL (32.0-37.0); MCV 91.8 fL (80.0-97.0); Monocytes % (A) 8.4 %; Neutrophils % (A) 80.5 %; Platelet Count 197 10*3/uL (140-440); RBC 4.25 10*6/uL (4.10-5.20); RDW 13.3 % (11.5-14.5)
[2024-09-04 02:32] LABS: Basophils # (A) 0.07 10*3/uL (0.00-0.10); Basophils % (A) 0.7 %; Eosinophils # (A) 0.03 10*3/uL (0.04-0.35); Eosinophils % (A) 0.3 %; Lymphocytes # (A) 0.96 10*3/uL (0.90-5.00); Monocytes # (A) 0.82 10*3/uL (0.20-1.00); Neutrophils # (A) 7.89 10*3/uL (1.80-7.70)
[2024-09-04 02:48] LABS: ALT 16 U/L (4-34); AST 25 U/L (14-36); African American GFR (CKD) >90 (>60 ml/min/1.73 sqM); Albumin 4.1 g/dL (3.5-5.0); Alkaline Phosphatase 60 U/L (38-126); Anion Gap 16 mmol/L; Blood Urea Nitrogen 12 mg/dL (7-17); Calcium 9.8 mg/dL (8.4-10.2); Carbon Dioxide 23 mmol/L (22-30); Chloride 98 mmol/L (98-107); Glucose 69 mg/dL (74-99); Non-African American GFR(CKD) >90 (>60 ml/min/1.73 sqM); Potassium 3.7 mmol/L (3.5-5.1); Sodium 137 mmol/L (137-145); Total Bilirubin 0.7 mg/dL (0.2-1.3); Total Protein 6.5 g/dL (6.3-8.2)
[2024-09-04] MEDS: SODIUM CHLORIDE 0.9% 1,000 ML IV ONE (03:01)
[2024-09-04] MEDS: MORPHINE SULFATE 4 MG/ML SYRINGE IVP STA ×2 (03:53→06:16)
[2024-09-04 04:10] LABS: Appearance,Urine Cloudy (Clear); Bacteria,Urine Rare /hpf; Bilirubin,Urine Negative (Negative); Blood,Urine Moderate (Negative); Budding Yeast,Urine Rare /hpf; Color,Urine Light Yellow; Glucose,Urine (UA) Negative (Negative); Hyaline Casts,Urine 7 /lpf (0-2); Ketones,Urine 4+ (Negative); Leukocyte Esterase,Urine Large (Negative); Mucus,Urine Rare /hpf; Nitrite,Urine Negative (Negative); PH, Urine 5.5 (5.0-8.0); Protein,Urine Negative (Negative); RBC,Urine 50 /hpf (0-5); Specific Gravity,Urine 1.016 (1.001-1.035); Squamous Epithelial Cell,Urine 6 /hpf (0-4); Urobilinogen,Urine <2.0 mg/dL (<2.0); WBC,Urine 15 /hpf (0-5)
[2024-09-04] MEDS: SODIUM CHLORIDE 0.9% 1,000 ML IV SCH (05:03)
--- NOTE | 2024-09-04 05:22 | XR ---
EXAM: XR Pelvis, 1 or 2 Views CLINICAL HISTORY: ITS.REASON XR Reason: rt kidney stone TECHNIQUE: Frontal view of the pelvis. COMPARISON: No relevant prior studies available. FINDINGS: Bones/joints: Unremarkable. No acute fracture. No dislocation. Soft tissues: Unremarkable. Other findings: The right distal ureteral stone measuring approximately 6 mm appears to be in similar position as prior CT. additional pelvic phleboliths. IMPRESSION: The right distal ureteral stone measuring approximately 6 mm appears to be in similar position as prior CT.
--- NOTE | 2024-09-04 05:59 | CT ---
EXAM: CT Abdomen and Pelvis Without Intravenous Contrast CLINICAL HISTORY: ITS.REASON CT Reason: renal colic TECHNIQUE: Axial computed tomography images of the abdomen and pelvis without intravenous contrast. CTDI is 13 mGy and DLP is 691.7 mGy-cm. This CT exam was performed using one or more of the following dose reduction techniques: automated exposure control, adjustment of the mA and/or kV according to patient size, and/or use of iterative reconstruction technique. COMPARISON: 08/31/2024 FINDINGS: Lung bases: Unremarkable. No mass. No consolidation. ABDOMEN: Liver: Indeterminate hypodense lesion in the right hepatic lobe measuring approximately 3.3 x 2.8 cm. Recommend further evaluation with liver mass protocol CT or MRI. Gallbladder and bile ducts: Unremarkable. No calcified stones. No ductal dilation. Pancreas: Unremarkable. No ductal dilation. Spleen: Granulomas in the spleen likely related to prior infection. Moderate right hydronephrosis. 6 mm stone in the distal right ureter, slightly more distal when compared to prior exam. Adrenals: Unremarkable. No mass. Kidneys and ureters: See above. Stomach and bowel: Circumferential thickening of the stomach, possibly related to gastritis, however malignancy should be excluded given the indeterminate liver lesion. No obstruction. PELVIS: Appendix: No findings to suggest acute appendicitis. Bladder: Unremarkable. No stones. Reproductive: Unremarkable as visualized. ABDOMEN and PELVIS: Intraperitoneal space: Unremarkable. No free air. No significant fluid collection. Bones/joints: Degenerative changes in the thoracolumbar spine. No acute fracture. No dislocation. Soft tissues: Unremarkable. Vasculature: Unremarkable. No abdominal aortic aneurysm. Lymph nodes: Unremarkable. No enlarged lymph nodes. IMPRESSION: 1. Moderate right hydronephrosis. 6 mm stone in the distal right ureter, slightly more distal when compared to prior exam. Hysterectomy. 2. Indeterminate hypodense lesion in the right hepatic lobe measuring approximately 3.3 x 2.8 cm. Recommend further evaluation with liver mass protocol CT or MRI. 3. Circumferential thickening of the stomach, possibly related to gastritis, however malignancy should be excluded given the indeterminate liver lesion.
[2024-09-04] MEDS: KETOROLAC 15 MG/ML 1 ML VIAL IVP STA (06:14)
[2024-09-04] MEDS ORDERED: NALOXONE 0.4 MG/ML 1 ML VIAL IV PRN (06:22)
[2024-09-04] MEDS ORDERED: KETOROLAC 15 MG/ML 1 ML VIAL IVP PRN (06:22)
[2024-09-04] MEDS ORDERED: MORPHINE SULFATE 4 MG/ML SYRINGE IV PRN (06:22)
[2024-09-04] MEDS: DEXTROSE 5%-0.9% NACL 1,000 ML IV SCH (06:29)
--- NOTE | 2024-09-04 09:10 | P.GSHP ---
History of Present Illness H&P Date: 09/04/24 Chief Complaint: Right renal colic The patient is a 53-year-old white female who presented to the ER on August 31, 2024 with right flank pain associated with nausea and vomiting. CT scan showed moderate right hydronephrosis due to a 4 mm calculus at the pelvic brim. She returned to the ER overnight with sudden onset of increased flank pain. Repeat CT scan suggest that the calculus measures 6 mm in size, and is now located at the UVJ. She has been admitted with intractable symptoms. She has had 1 prior episode of kidney stones, which she passed. - Constitutional Constitutional: Denies chills, Denies fever - Gastrointestinal Gastrointestinal: Reports nausea, Reports vomiting - Genitourinary (Female) Genitourinary: Reports flank pain, Reports kidney stones, Denies dysuria, Denies hematuria Past Medical History Past Medical History: No Reported History Additional Past Medical History / Comment(s): She has had issues with menorrhagia. kidney stones History of Any Multi-Drug Resistant Organisms: None Reported Past Surgical History: Hysterectomy, Tonsillectomy, Tubal Ligation, Uterine Ablation Past Anesthesia/Blood Transfusion Reactions: Family History of Problems w/ Anesthesia Additional Past Anesthesia/Blood Transfusion Reaction / Comment(s): mother hx of ponv Past Psychological History: No Psychological Hx Reported Smoking Status: Never smoker Past Alcohol Use History: None Reported Past Drug Use History: None Reported - Past Family History Father Family Medical History: Diabetes Mellitus, Myocardial Infarction (MA) Medications and Allergies Home Medications Medication Instructions Recorded Confirmed Type HYDROcodone/APAP 5-325MG [[place] 1 tab PO Q4HR PRN 3 Days #18 tab 08/31/24 09/04/24 Rx 5-325] Ondansetron Odt [Zofran ODT] 4 mg PO Q8HR PRN #10 tab 08/31/24 09/04/24 Rx Tamsulosin [Flomax] 0.4 mg PO DAILY #14 cap 08/31/24 09/04/24 Rx Allergies Allergy/AdvReac Type Severity Reaction Status Date / Time No Known Allergies Allergy Verified 09/04/24 07:41 Surgical - Exam Vital Signs Temp Pulse Resp BP Pulse Ox 97.8 F 77 16 141/77 97 09/04/24 01:44 09/04/24 01:44 09/04/24 01:44 09/04/24 01:44 09/04/24 01:44 - General well developed, well nourished, moderate distress - Respiratory normal respiratory effort - Abdomen Soft, non-distended, no mass. Mild RLQ tenderness, no guarding or rebound. - Psychiatric oriented to time, oriented to person, oriented to place, speech is normal, memory intact Results - Labs 09/04/24 02:15 09/04/24 02:15 Abnormal Lab Results - Last 24 Hours (Table) 09/04/24 09/04/24 09/04/24 Range/Units 02:15 02:15 03:47 MCH 32.2 H (27.0-32.0) pg Neutrophils # 7.89 H (1.80-7.70) 10*3/uL Eosinophils # 0.03 L (0.04-0.35) 10*3/uL Glucose 69 L (74-99) mg/dL Urine Appearance Cloudy H (Clear) Urine Ketones 4+ H (Negative) Urine Blood Moderate H (Negative) Ur Leukocyte Esterase Large H (Negative) Urine RBC 50 H (0-5) /hpf Urine WBC 15 H (0-5) /hpf Ur Squamous Epith Cells 6 H (0-4) /hpf Urine Bacteria Rare H (None) /hpf Hyaline Casts 7 H (0-2) /lpf Urine Mucus Rare H (None) /hpf Urine Yeast (Budding) Rare H (None) /hpf Diabetes panel 09/04/24 Range/Units 02:15 Sodium 137 (137-145) mmol/L Potassium 3.7 (3.5-5.1) mmol/L Chloride 98 (98-107) mmol/L Carbon Dioxide 23 (22-30) mmol/L BUN 12 (7-17) mg/dL Creatinine 0.66 (0.52-1.04) mg/dL Glucose 69 L (74-99) mg/dL Calcium 9.8 (8.4-10.2) mg/dL AST 25 (14-36) U/L ALT 16 (4-34) U/L Alkaline Phosphatase 60 (38-126) U/L Total Protein 6.5 (6.3-8.2) g/dL Albumin 4.1 (3.5-5.0) g/dL Calcium panel 09/04/24 Range/Units 02:15 Calcium 9.8 (8.4-10.2) mg/dL Albumin 4.1 (3.5-5.0) g/dL Pituitary panel 09/04/24 Range/Units 02:15 Sodium 137 (137-145) mmol/L Potassium 3.7 (3.5-5.1) mmol/L Chloride 98 (98-107) mmol/L Carbon Dioxide 23 (22-30) mmol/L BUN 12 (7-17) mg/dL Creatinine 0.66 (0.52-1.04) mg/dL Glucose 69 L (74-99) mg/dL Calcium 9.8 (8.4-10.2) mg/dL Adrenal panel 09/04/24 Range/Units 02:15 Sodium 137 (137-145) mmol/L Potassium 3.7 (3.5-5.1) mmol/L Chloride 98 (98-107) mmol/L Carbon Dioxide 23 (22-30) mmol/L BUN 12 (7-17) mg/dL Creatinine 0.66 (0.52-1.04) mg/dL Glucose 69 L (74-99) mg/dL Calcium 9.8 (8.4-10.2) mg/dL Total Bilirubin 0.7 (0.2-1.3) mg/dL AST 25 (14-36) U/L ALT 16 (4-34) U/L Alkaline Phosphatase 60 (38-126) U/L Total Protein 6.5 (6.3-8.2) g/dL Albumin 4.1 (3.5-5.0) g/dL - Imaging CT scan - abdomen: report reviewed, image reviewed Assessment and Plan (1) Calculus of ureter Current Visit: Yes Status: Acute Code(s): N20.1 - CALCULUS OF URETER SNOMED Code(s): 37895703 Plan: I had a lengthy discussion with the patient and her . I explained to them that the calculus has a fair likelihood of spontaneous passage, but that it could not be determined when the stone might pass. The patient's daughter is graduating from college on September 06, so she desires prompt relief of her symptoms. She will thus undergo cystoscopy, right ureteroscopy with laser lithotripsy and stone basketing, possible right ureteral stent insertion later today. I have reviewed the procedure in detail with the patient and her . They have been made aware of potential risks, which include anesthesia, bleeding, infection, inability to successfully remove the stone, and ureteral injury. Time with Patient: Greater than 30
[2024-09-04] MEDS: IV FLUID CONTINUATION 1,000 ML IV ONE ×2 (12:35→14:06)
[2024-09-04] MEDS: DEXAMETHASONE SOD PHOSPHATE 4 MG/ML 1 ML VIAL IVP STA (12:48)
[2024-09-04] MEDS: ONDANSETRON 4 MG/2 ML VIAL IVP PRN (12:49)
[2024-09-04] MEDS ORDERED: MIDAZOLAM 2 MG/2 ML VIAL ONE (13:37)
[2024-09-04] MEDS ORDERED: PROPOFOL 10 MG/ML 20 ML VIAL IV ONE (13:37)
[2024-09-04] MEDS ORDERED: fentaNYL (PF) 50 MCG/ML 2 ML AMP ONE (13:37)
[2024-09-04] MEDS ORDERED: SUCCINYLCHOLINE CHLORIDE 200 MG/10 ML VIAL IV ONE (13:37)
[2024-09-04] MEDS ORDERED: LIDOCAINE 1% INJ 10MG/ML (20 ML MDV) ONE (13:37)
[2024-09-04] MEDS: IV FLUID CONTINUATION 1,000 ML with ceFAZolin 2,000 MG IV ONE (13:57)
[2024-09-04] MEDS: IOPAMIDOL-300 100ML BTL MISCELLANE ONE ×2 (14:07)
--- NOTE | 2024-09-04 14:43 | P.OP ---
Date of Procedure: 09/04/24 Preoperative Diagnosis: Right ureteral calculus Postoperative Diagnosis: Same Procedure(s) Performed: Cystoscopy, right retrograde pyelogram, right ureteroscopy with Holmium laser lithotripsy, right ureteral stent insertion Anesthesia: MANAVA Surgeon: Pop Gutierrez Estimated Blood Loss (ml): 5 IV fluids (ml): 800 Pathology: other (Right ureteral calculus fragments, sent for chemical analysis) Condition: stable Disposition: PACU Indications for Procedure: The patient is a 53-year-old white female who presented to the ER on August 31, 2024 with right flank pain associated with nausea and vomiting. CT scan showed moderate right hydronephrosis due to a 4 mm calculus at the pelvic brim. She returned to the ER overnight with sudden onset of increased flank pain. Repeat CT scan suggest that the calculus measures 6 mm in size, and is now located at the UVJ. She has been admitted with intractable symptoms. She has had 1 prior episode of kidney stones, which she passed. Operative Findings: Right distal ureteral calculus, fragmented and removed completely. Description of Procedure: The patient was taken to the operating room and placed in the dorsolithotomy position, with legs supported in Clinton stirrups. The external genitalia was prepped and draped sterilely. The 30 lens was used to introduce the 21-Eritrean Adams cystoscopic sheath through the urethra and into the bladder under direct vision. The bladder was examined in its entirety. Both ureteral orifices were normal anatomic location and configuration, and clear urine effluxed from both. No tumors or foreign bodies were seen. The Adams semirigid ureteroscope was advanced into the bladder, and the right ureteral orifice was cannulated. The ureteroscope was advanced approximately 2 cm, at which point the caliber of the ureter was narrowed. No calculus was seen. Contrast was injected through the ureteroscope, clearly demonstrating a calculus proximal to the beak of the ureteroscope. A 0.035 inch Glidewire was passed through the ureteroscope and advanced up to the right renal pelvis. The ureteroscope was removed, and a 12 E[place]an, 4 cm balloon dilating catheter was passed over the wire and used to dilate the distal ureter. Ureteroscopy was then repeated, and the ureteroscope was advanced up to the calculus. The 365 micron Holmium laser probe was passed through the ureteroscope, and lithotripsy was performed. As the calculus fragmented, fragments passed distally into the bladder. Once this was completed, the ureteroscope was advanced up to the UPJ. No calculus fragments remained within the ureter, and there was no evidence of ureteral trauma. The Glidewire was passed through the ureteroscope, which was removed. The Glidewire was then backloaded into the cystoscope, which was passed into the bladder. A 24 cm, 4.8 E[place]rean double-J ureteral stent was placed over the wire. Proper stent positioning was verified fluoroscopically and endoscopically. The bladder was emptied and the cystoscope removed. Stone fragments retrieved were sent for chemical analysis. The patient tolerated the procedure well and was taken to the recovery room in stable condition. [facility] [place] Report: Procedure Acuity: Urgent Stone Size and Location: 5 mm, right distal ureter Ureteral Dilation: Balloon Dilation Ureteral Access Sheath Used: No Stone Sent for Analysis: Yes All Stones/Fragments Were Removed with a Basket: Yes Complications: No Preoperative Antibiotics Given: Yes Stent Placed: Yes If Stent Placed, Was String Left Attached: No If Stent Placed, When is it to be Removed: 2 weeks Discharge Medications: Toradol, tamsulosin, tolterodine
--- NOTE | 2024-09-04 15:15 | FL ---
EXAMINATION TYPE: FL guidance operating room DATE OF EXAM: 09/04/2024 2:43 PM COMPARISON: Pre Operative Images if available both CT/MRI or plain film CLINICAL INDICATION: Female, 53 years old with history of CYSTO; TECHNIQUE: FL guidance operating room, multiple fluoroscopic images provided for procedure. DAP: 0.93209 mGym2 Gycm2 uGym2 cGycm2 or equivalent. FINDINGS: Fluoroscopic images during retrograde pyelogram demonstrate contrast in the renal collecting system. There is dilation of the collecting system. No evidence of extravasation of contrast. No immediate co mplication identified. IMPRESSION: 1. No evidence for intraoperative complication. 2. Please see the operative/procedural note for further details. [facility], , 09/04/2024 3:13 PM
[2024-09-04 17:21] VITALS: RESP 16; TEMP 97.7
[2024-09-04 18:02] VITALS: BP 116/75; PULSE 60
--- NOTE | 2024-09-04 18:38 | P.DS ---
Providers Date of admission: 09/04/24 06:22 Expected date of discharge: 09/04/24 Attending physician: Pop Gutierrez Primary care physician: Thagn Wright - Discharge Diagnosis(es) (1) Calculus of ureter Current Visit: Yes Status: Acute Hospital Course: The patient is a 53-year-old white female who presented to the ER on August 31, 2024 with right flank pain associated with nausea and vomiting. CT scan showed moderate right hydronephrosis due to a 4 mm calculus at the pelvic brim. She returned to the ER overnight with sudden onset of increased flank pain. Repeat CT scan suggests that the calculus measures 6 mm in size, and is now located at the UVJ. She was admitted with intractable symptoms and underwent ureteroscopic removal of the calculus. Postoperatively, she felt well and was discharged home. Procedures: Cystoscopy, right ureteroscopy with laser lithotripsy, right ureteral stent insertion on September 04, 2024. Patient Condition at Discharge: Good Plan - Discharge Summary Discharge Rx Participant: No New Discharge Prescriptions: New Tolterodine ER [Detrol LA] 4 mg PO DAILY #14 cap Ketorolac [Toradol] 10 mg PO Q6HR PRN #10 tab PRN Reason: Pain Tolterodine ER [Detrol LA] 4 mg PO DAILY #14 cap Ketorolac [Toradol] 10 mg PO Q6HR PRN #10 tab PRN Reason: Pain No Action Tamsulosin [Flomax] 0.4 mg PO DAILY #14 cap HYDROcodone/APAP 5-325MG [[place] 5-325] 1 tab PO Q4HR PRN 3 Days #18 tab PRN Reason: Pain Ondansetron Odt [Zofran ODT] 4 mg PO Q8HR PRN #10 tab PRN Reason: Nausea Discharge Medication List HYDROcodone/APAP 5-325MG [[place] 5-325] 1 tab PO Q4HR PRN 3 Days #18 tab 08/31/24 [Rx] Ondansetron Odt [Zofran ODT] 4 mg PO Q8HR PRN #10 tab 08/31/24 [Rx] Tamsulosin [Flomax] 0.4 mg PO DAILY #14 cap 08/31/24 [Rx] Ketorolac [Toradol] 10 mg PO Q6HR PRN #10 tab 05/15/25 [Rx] Ketorolac [Toradol] 10 mg PO Q6HR PRN #10 tab 09/04/24 [Rx] Tolterodine ER [Detrol LA] 4 mg PO DAILY #14 cap 09/04/24 [Rx] Tolterodine ER [Detrol LA] 4 mg PO DAILY #14 cap 09/04/24 [Rx] Follow up Appointment(s)/Referral(s): Thang Wright DO [Primary Care Provider] - 1-2 days Pop Gutierrez MD [STAFF PHYSICIAN] - 09/16/24 Activity/Diet/Wound Care/Special Instructions: Diet and activity as tolerated. Drink plenty of fluids. Discharge Disposition: HOME SELF-CARE
== END 2024-09-04 19:05 | disposition home or self-care (01) ==
LOC: EC 01:43 → 1SOBS 06:22
PROVIDERS: ADMIT Urology; ATTEND Urology
DX: N13.2 Hydronephrosis with renal and ureteral calculous obstruction (principal); Z79.899 Other long term (current) drug therapy; Z87.442 Personal history of urinary calculi
CPT/HCPCS: 52356; 96376; 96361; 96374; 96375; 99285; 36415; 80053; 85025; 81001; 82365; 87086; 74018; 74176; J2704; G0378; C1758; C1769; C1894; J2250; J0330; J2270; J1100; J2405; J0690; J2003; J3010; J1885; Q9967